=== PATIENT | female | born 1960 | race African-American/Black ===

== ENCOUNTER 2021-02-15 02:46 | Emergency (ER) | payer MEDICAID ==
[~2021-02-15] VITALS: Ht 160 cm; Wt 82.0 kg
[2021-02-15] MEDS ORDERED: ONDANSETRON HCL 4MG/2ML INJ IV STA (03:09)
[2021-02-15] MEDS ORDERED: MORPHINE SULFATE 4 MG/ML CPJ (NOT FOR IM USE) IV STA (03:09)
[2021-02-15] MEDS ORDERED: SODIUM CHLORIDE 0.9% 1,000 ML IV ONE (03:15)
[2021-02-15 03:32] LABS: BASOPHILS % 0.7 % (0.0-2.0); EOSINOPHILS % 0.7 % (0.0-5.0); HEMATOCRIT. 46.1 % (36.0-48.0); MEAN CORPUSCULAR HEMOGLOBIN 35.2 pg (28.0-32.0); MEAN CORPUSCULAR VOLUME 101.3 fL (81.0-99.0); MEAN PLATELET VOLUME 6.7 fl (7.4-10.4); MONOCYTES % 4.4 % (2.0-8.0); NEUTROPHILS % 74.2 % (40.0-76.0); PLATELET 253 x1000/uL (130-400); RED BLOOD CELL COUNT 4.55 mill/uL (4.2-5.4); RED CELL DISTRIBUTION WIDTH 13.8 % (11.6-14.6)
[2021-02-15 03:36] LABS: CHLORIDE 109 mEq/L (98-107)
[2021-02-15 03:37] LABS: PROTHROMBIN TIME 10.5 sec (9.6-11.0)
[2021-02-15] MEDS ORDERED: MORPHINE SULFATE 2 MG/ML CPJ (NOT FOR IM USE) IV ONE (05:30)
[2021-02-15 05:56] VITALS: BP 155/111
[2021-02-15 06:14] LABS: CLARITY URINE CLEAR (CLEAR); COLOR URINE DARK YELLOW (YELLOW); KETONES URINE NEGATIVE (NEGATIVE); LEUKOCYTE ESTERASE URINE TRACE (NEGATIVE); NITRITE URINE NEGATIVE (NEGATIVE); OCCULT BLOOD URINE NEGATIVE (NEGATIVE); PH URINE 5.5 (4.5-8.0); PROTEIN URINE TRACE (NEGATIVE); SPECIFIC GRAVITY URINE 1.028 (1.005-1.030)
[2021-02-15] MEDS ORDERED: TOPUD PO (06:52)
[2021-02-15] MEDS ORDERED: POLY17PO3 PO (06:52)
== END 2021-02-15 07:19 | disposition home or self-care (01) ==
LOC: ER 02:46
DX: R10.84 Generalized abdominal pain (principal); K64.4 Residual hemorrhoidal skin tags; K57.30 Diverticulosis of large intestine without perforation or abscess without bleeding; N28.1 Cyst of kidney, acquired; K92.1 Melena; J43.9 Emphysema, unspecified; M48.07 Spinal stenosis, lumbosacral region; M51.87 Other intervertebral disc disorders, lumbosacral region; K59.00 Constipation, unspecified; I10 Essential (primary) hypertension; I87.8 Other specified disorders of veins
CPT/HCPCS: 36415; 71045; 74176; 80053; 81003; 83690; 85025; 85610; 93005; 96361; 96374; 96375; 96376; 99285; J2270; J2405; J7030

== ENCOUNTER 2023-04-28 04:42 | Inpatient (IN) | payer MEDICAID ==
[~2023-04-28] VITALS: Ht 160 cm; Wt 82.6 kg
[~2023-04-28 04:42] MED LIST: POLY17PO3 PO; TOPUD PO
[2023-04-28] MEDS ORDERED: ACETAMINOPHEN 325MG TABLET PO STA (05:50)
[2023-04-28] MEDS ORDERED: SODIUM CHLORIDE 0.9% 1,000 ML IV ONE (06:00)
[2023-04-28 06:17] LABS: BASOPHILS % 0.4 % (0.0-2.0); DIFFERENTIAL COMMENT 0; EOSINOPHILS % 0.4 % (0.0-5.0); HEMATOCRIT. 49.9 % (36.0-48.0); HEMOGLOBIN. 17.1 g/dL (12.0-16.0); LYMPHOCYTES % 9.1 % (20.0-50.0); MEAN CORPUSCULAR HGB CONC 34.2 g/dL (31.0-37.0); MEAN CORPUSCULAR VOLUME 102.2 fL (81.0-99.0); MEAN PLATELET VOLUME 7.1 fl (7.4-10.4); MONOCYTES % 7.4 % (2.0-8.0); NEUTROPHILS % 82.7 % (40.0-76.0); PLATELET 230 x1000/uL (130-400); RED BLOOD CELL COUNT 4.88 mill/uL (4.2-5.4); RED CELL DISTRIBUTION WIDTH 14.6 % (11.6-14.6)
[2023-04-28 06:27] LABS: INR 1.1; PROTHROMBIN TIME 11.4 sec (9.6-11.0)
[2023-04-28 06:42] LABS: ALANINE AMINOTRANSFERASE 34 IU/L (10-49); ALBUMIN 4.5 g/dL (3.2-4.8); ASPARTATE AMINOTRANSFERASE 66 IU/L (<34); BILIRUBIN TOTAL 0.4 mg/dL (0.1-1.0); CALCIUM 9.4 mg/dL (8.7-10.4); CARBON DIOXIDE 21 mEq/L (21-32); CHLORIDE 107 mEq/L (98-107); CREATININE 1.6 mg/dL (0.6-1.0); GLUCOSE 102 mg/dL (70-105); POTASSIUM 3.8 mEq/L (3.5-5.1); PROTEIN TOTAL 7.5 g/dL (6.0-8.3); SODIUM 137 mEq/L (136-145); TROPONIN I HIGH SENSITIVITY 10 ng/L (3.0-34); UREA NITROGEN BLOOD 11 mg/dL (9-23)
[2023-04-28 07:00] LABS: LACTIC ACID 2.1 mmol/L (0.4-2.0)
[2023-04-28] MEDS ORDERED: LEVOFLOXACIN 750MG PREMIX 150 ML IV ONE (08:00)
[2023-04-28 08:10] LABS: TROPONIN I HIGH SENSITIVITY 19 ng/L (3.0-34)
[2023-04-28] MEDS ORDERED: ACETAMINOPHEN 325MG TABLET PO PRN ×2 (13:00)
[2023-04-28] MEDS ORDERED: GUAIFENESIN 200MG/10ML SUGAR FREE UDC PO PRN (13:00)
[2023-04-28] MEDS ORDERED: AMLODIPINE 5MG TABLET PO NR (13:00)
[2023-04-28] MEDS ORDERED: IPRATROPIUM/ALBUTEROL 0.5-3(2.5)MG/3ML NEB HHN PRN (13:00)
[2023-04-28] MEDS ORDERED: LOPERAMIDE HCL 2MG CAPSULE PO NR (13:00)
[2023-04-28] MEDS ORDERED: ONDANSETRON HCL 4MG/2ML INJ IV PRN (13:00)
[2023-04-28] MEDS ORDERED: CLONIDINE 0.1MG TABLET PO PRN (13:00)
[2023-04-28] MEDS: SODIUM CHLORIDE 0.9% 1,000 ML IV SCH ×2 (13:00→23:00)
[2023-04-28] MEDS: PANTOPRAZOLE 40MG DR TABLET PO SCH (14:00)
[2023-04-28] MEDS ORDERED: ROSU40TA PO (15:24)
[2023-04-28] MEDS ORDERED: DIPH25TA23 PO (15:24)
[2023-04-28] MEDS ORDERED: HYDR-4009 PO (15:24)
[2023-04-28] MEDS ORDERED: BENA-8 PO (15:24)
[2023-04-28] MEDS ORDERED: EMTR1TAB12 PO (15:24)
[2023-04-28] MEDS ORDERED: AMLO10TA80 PO (15:24)
[2023-04-28] MEDS ORDERED: CALC-476 PO (15:24)
[2023-04-28] MEDS ORDERED: NEVI400T5 PO (15:24)
[2023-04-28] MEDS ORDERED: IBUP-2030 PO (15:24)
[2023-04-28] MEDS ORDERED: ASPI-1406 PO (15:24)
[2023-04-28] MEDS ORDERED: ATEN50TA PO (15:24)
[2023-04-28] MEDS ORDERED: PIPERACILLIN/TAZ 3.375G PREMIX 50 ML IV NR (18:00)
[2023-04-28 19:42] LABS: CHOLESTEROL 182 mg/dL (<200); HDL CHOLESTEROL 80 mg/dL (>65); LDL CHOLESTEROL 111 mg/dL (5-100); PHOSPHORUS 2.2 mg/dL (2.5-4.9); T4 FREE 0.71 ng/dL (0.89-1.76); TRIGLYCERIDE 99 mg/dL (0-150)
[2023-04-28 20:27] LABS: HEMATOCRIT 47.5 % (36.0-48.0)
[2023-04-28 20:46] LABS: CREATINE KINASE 21628 IU/L (34-145)
[2023-04-28 22:30] VITALS: BP 121/76; PULSE 92; RESP 18; TEMP 101.7
[2023-04-28 23:00] VITALS: BP 121/76; PULSE 92; RESP 18; TEMP 101.7
[2023-04-28] MEDS ORDERED: POTASSIUM PHOS,M-BASIC-D-BASIC 15 MMOL in DEXT 5% WATER 245 ML IV NR (23:30)
[2023-04-29] MEDS ORDERED: PIPERACILLIN/TAZOBACTAM 3.375 G in DEXTROSE 5% WATER 50 ML IV SCH (06:00)
[2023-04-29] MEDS: PANTOPRAZOLE 40MG DR TABLET PO SCH (06:09)
[2023-04-29] MEDS: PIPERACILLIN/TAZOBACTAM 3.375 G in DEXTROSE 5% WATER 50 ML IV SCH ×3 (06:11→16:20)
[2023-04-29 06:37] LABS: BASOPHILS % 0.5 % (0.0-2.0); DIFFERENTIAL COMMENT 0; EOSINOPHILS % 0.4 % (0.0-5.0); HEMATOCRIT. 44.8 % (36.0-48.0); HEMOGLOBIN. 15.6 g/dL (12.0-16.0); LYMPHOCYTES % 24.6 % (20.0-50.0); MEAN CORPUSCULAR HGB CONC 34.9 g/dL (31.0-37.0); MEAN CORPUSCULAR VOLUME 100.4 fL (81.0-99.0); MEAN PLATELET VOLUME 7.5 fl (7.4-10.4); MONOCYTES % 8.6 % (2.0-8.0); NEUTROPHILS % 65.9 % (40.0-76.0); PLATELET 184 x1000/uL (130-400); RED BLOOD CELL COUNT 4.47 mill/uL (4.2-5.4); RED CELL DISTRIBUTION WIDTH 14.6 % (11.6-14.6); WHITE BLOOD COUNT 9.2 x1000/uL (4.5-11.0)
[2023-04-29] MEDS: ASPIRIN 81MG EC TABLET PO SCH (09:00)
[2023-04-29] MEDS: AMLODIPINE 10MG TABLET PO SCH (09:00)
[2023-04-29] MEDS: LOPERAMIDE HCL 2MG CAPSULE PO NR ×2 (09:21→09:30)
[2023-04-29 10:06] LABS: ALANINE AMINOTRANSFERASE 179 IU/L (10-49); ALBUMIN 3.7 g/dL (3.2-4.8); ASPARTATE AMINOTRANSFERASE 737 IU/L (<34); BILIRUBIN TOTAL 0.3 mg/dL (0.1-1.0); CALCIUM 8.8 mg/dL (8.7-10.4); CARBON DIOXIDE 22 mEq/L (21-32); CHLORIDE 110 mEq/L (98-107); CREATININE 1.2 mg/dL (0.6-1.0); GLUCOSE 86 mg/dL (70-105); POTASSIUM 4.5 mEq/L (3.5-5.1); PROTEIN TOTAL 6.1 g/dL (6.0-8.3); SODIUM 139 mEq/L (136-145); UREA NITROGEN BLOOD 9 mg/dL (9-23)
[2023-04-29 10:38] VITALS: BP 100/59; PULSE 79; RESP 18; TEMP 98
[2023-04-29 10:48] LABS: CREATINE KINASE 25730 IU/L (34-145)
[2023-04-29 11:38] LABS: CLARITY URINE CLOUDY (CLEAR); COLOR URINE YELLOW (YELLOW); GLUCOSE URINE NEGATIVE (NEGATIVE); KETONES URINE NEGATIVE (NEGATIVE); LEUKOCYTE ESTERASE URINE NEGATIVE (NEGATIVE); NITRITE URINE NEGATIVE (NEGATIVE); OCCULT BLOOD URINE 3+ (NEGATIVE); PH URINE 5.5 (4.5-8.0); PROTEIN URINE TRACE (NEGATIVE); SPECIFIC GRAVITY URINE 1.017 (1.005-1.030); UROBILINOGEN URINE 0.2 E.U./dL (0.2-1.0)
[2023-04-29 12:11] LABS: BACTERIA URINE 1+; COARSE GRANULAR CASTS URINE 0-5 /lpf; RBC URINE 0-2 /hpf (0-2); SQUAMOUS EPITHELIAL CELL URINE 1+ /lpf (RARE/1+); YEAST URINE NONE SEEN
[2023-04-29 14:41] VITALS: BP 123/60; PULSE 81; RESP 18; TEMP 98
[2023-04-29] MEDS ORDERED: DIATR MEGLU/DIATRIZOATE SOLN 30ML PO SCH (14:45)
[2023-04-29 16:17] LABS: IRON 23 ug/dL (50-170); TOTAL IRON BINDING CAPACITY 327 ug/dl (250-425)
[2023-04-29 17:33] VITALS: BP 116/67; PULSE 83; RESP 18; TEMP 98
[2023-04-29] MEDS ORDERED: CEFTRIAXONE 2GM/50ML (ADDEASE) 50 ML IV SCH (19:30)
[2023-04-29 20:00] VITALS: BP 99/72; PULSE 88; RESP 18; TEMP 98.8
[2023-04-29] MEDS: CEFTRIAXONE 2 G in DEXTROSE 5% WATER 50 ML IV SCH (21:14)
[2023-04-29] MEDS: METRONIDAZOLE 500 MG PREMIX 100 ML IV SCH (22:00)
[2023-04-29 22:08] LABS: FERRITIN 90 ng/mL (10-291); FOLIC ACID (FOLATE) SERUM 12.28 ng/mL (>5.38)
[2023-04-29 22:28] LABS: VITAMIN B12 SERUM > 20000 pg/mL (211-911)
[2023-04-30] VITALS: BP 125/75; PULSE 90; RESP 18; TEMP 97.7
[2023-04-30] MEDS: METRONIDAZOLE 500 MG PREMIX 100 ML IV SCH ×2 (06:00→14:00)
[2023-04-30 06:29] LABS: BASOPHILS % 0.4 % (0.0-2.0); EOSINOPHILS % 1.3 % (0.0-5.0); HEMATOCRIT. 41.8 % (36.0-48.0); HEMOGLOBIN. 14.5 g/dL (12.0-16.0); MEAN CORPUSCULAR HEMOGLOBIN 34.6 pg (28.0-32.0); MEAN CORPUSCULAR HGB CONC 34.8 g/dL (31.0-37.0); MEAN CORPUSCULAR VOLUME 99.4 fL (81.0-99.0); MEAN PLATELET VOLUME 7.2 fl (7.4-10.4); NEUTROPHILS % 67.3 % (40.0-76.0); PLATELET 176 x1000/uL (130-400); RED BLOOD CELL COUNT 4.21 mill/uL (4.2-5.4); RED CELL DISTRIBUTION WIDTH 14.4 % (11.6-14.6); WHITE BLOOD COUNT 9.8 x1000/uL (4.5-11.0)
[2023-04-30 06:54] LABS: ALANINE AMINOTRANSFERASE 187 IU/L (10-49); ALBUMIN 3.8 g/dL (3.2-4.8); ASPARTATE AMINOTRANSFERASE 628 IU/L (<34); BILIRUBIN DIRECT 0.1 mg/dL (<=3.0); BILIRUBIN TOTAL 0.4 mg/dL (0.1-1.0); CALCIUM 8.6 mg/dL (8.7-10.4); CARBON DIOXIDE 21 mEq/L (21-32); CHLORIDE 111 mEq/L (98-107); GLUCOSE 91 mg/dL (70-105); POTASSIUM 4.1 mEq/L (3.5-5.1); PROTEIN TOTAL 5.9 g/dL (6.0-8.3); SODIUM 139 mEq/L (136-145); UREA NITROGEN BLOOD 6 mg/dL (9-23)
[2023-04-30 06:58] LABS: CREATINE KINASE 16918 IU/L (34-145)
[2023-04-30] MEDS: SODIUM CHLORIDE 0.9% 1,000 ML IV SCH (07:55)
[2023-04-30 08:00] VITALS: BP 134/76; RESP 20; TEMP 97.1
[2023-04-30] MEDS: FAMOTIDINE 20MG TABLET PO SCH (08:15)
[2023-04-30] MEDS ORDERED: NEVIRAPINE 200 MG PO SCH ×2 (09:00→09:30)
[2023-04-30] MEDS ORDERED: DESCOVY PO SCH (09:00)
[2023-04-30] MEDS: ASPIRIN 81MG EC TABLET PO SCH (09:00)
[2023-04-30] MEDS: AMLODIPINE 10MG TABLET PO SCH (09:48)
[2023-04-30 12:00] VITALS: BP 104/49; PULSE 82; RESP 19; TEMP 97.1
[2023-04-30 16:00] VITALS: BP 118/61; PULSE 80; RESP 20; TEMP 97.7
[2023-04-30] MEDS ORDERED: BISMUTH SUBSALICYLATE 262 MG/15 ML-120ML BOTTLE PO NR (16:15)
[2023-04-30 20:00] VITALS: BP 110/66; PULSE 77; RESP 18; TEMP 98
[2023-04-30] MEDS: CEFTRIAXONE 2 G in DEXTROSE 5% WATER 50 ML IV SCH (20:30)
[2023-05-01] VITALS: BP 116/64; PULSE 77; RESP 18; TEMP 98.5
[2023-05-01] MEDS: SODIUM CHLORIDE 0.9% 1,000 ML IV SCH ×3 (01:00→20:38)
[2023-05-01 04:00] VITALS: BP 114/68; PULSE 80; RESP 18; TEMP 97.7
[2023-05-01 06:09] LABS: BASOPHILS % 0.3 % (0.0-2.0); DIFFERENTIAL COMMENT 0; EOSINOPHILS % 1.3 % (0.0-5.0); HEMATOCRIT. 39.5 % (36.0-48.0); HEMOGLOBIN. 13.5 g/dL (12.0-16.0); LYMPHOCYTES % 29.3 % (20.0-50.0); MEAN CORPUSCULAR HEMOGLOBIN 34.8 pg (28.0-32.0); MEAN CORPUSCULAR HGB CONC 34.3 g/dL (31.0-37.0); MEAN CORPUSCULAR VOLUME 101.6 fL (81.0-99.0); MEAN PLATELET VOLUME 7.2 fl (7.4-10.4); MONOCYTES % 5.1 % (2.0-8.0); PLATELET 192 x1000/uL (130-400); RED BLOOD CELL COUNT 3.89 mill/uL (4.2-5.4); RED CELL DISTRIBUTION WIDTH 14.1 % (11.6-14.6); WHITE BLOOD COUNT 8.3 x1000/uL (4.5-11.0)
[2023-05-01 06:19] LABS: CALCIUM 8.5 mg/dL (8.7-10.4); CARBON DIOXIDE 22 mEq/L (21-32); CHLORIDE 112 mEq/L (98-107); CREATININE 0.8 mg/dL (0.6-1.0); GLUCOSE 85 mg/dL (70-105); POTASSIUM 3.8 mEq/L (3.5-5.1); SODIUM 142 mEq/L (136-145)
[2023-05-01 06:25] LABS: UREA NITROGEN BLOOD < 5 mg/dL (9-23)
[2023-05-01] MEDS: FAMOTIDINE 20MG TABLET PO SCH (06:57)
[2023-05-01] MEDS ORDERED: BISMUTH SUBSALICYLATE 262 MG/15 ML-120ML BOTTLE PO PRN (07:30)
[2023-05-01 08:00] VITALS: BP 115/63; PULSE 72; RESP 17; TEMP 97.1
[2023-05-01] MEDS: AMLODIPINE 10MG TABLET PO SCH (08:50)
[2023-05-01] MEDS: ASPIRIN 81MG EC TABLET PO SCH (08:51)
[2023-05-01 09:48] LABS: ALANINE AMINOTRANSFERASE 178 IU/L (10-49); ALBUMIN 3.6 g/dL (3.2-4.8); ASPARTATE AMINOTRANSFERASE 507 IU/L (<34); BILIRUBIN DIRECT 0.1 mg/dL (<=3.0); BILIRUBIN TOTAL 0.4 mg/dL (0.1-1.0); PROTEIN TOTAL 5.6 g/dL (6.0-8.3)
[2023-05-01 09:59] LABS: CREATINE KINASE 11780 IU/L (34-145)
[2023-05-01 12:00] VITALS: BP 120/60; PULSE 70; RESP 16; TEMP 97.3
[2023-05-01 16:00] VITALS: BP 115/68; PULSE 60; RESP 16; TEMP 97.3
[2023-05-01] MEDS: CEFTRIAXONE 2 G in DEXTROSE 5% WATER 50 ML IV SCH (20:37)
[2023-05-01] MEDS: METRONIDAZOLE 500 MG PREMIX 100 ML IV SCH (22:26)
[2023-05-02] VITALS: PULSE 80; RESP 17; TEMP 98.1
[2023-05-02] MEDS: SODIUM CHLORIDE 0.9% 1,000 ML IV SCH (03:05)
[2023-05-02 04:00] VITALS: BP 114/60; PULSE 76; RESP 17; TEMP 97.5
[2023-05-02] MEDS: METRONIDAZOLE 500 MG PREMIX 100 ML IV SCH ×2 (05:47→13:24)
[2023-05-02 08:00] VITALS: BP 110/66; PULSE 72; RESP 17; TEMP 98.2
[2023-05-02] MEDS: ASPIRIN 81MG EC TABLET PO SCH (08:33)
[2023-05-02] MEDS: FAMOTIDINE 20MG TABLET PO SCH (08:33)
[2023-05-02] MEDS: AMLODIPINE 10MG TABLET PO SCH (08:33)
[2023-05-02 08:42] LABS: ALANINE AMINOTRANSFERASE 161 IU/L (10-49); ALBUMIN 3.7 g/dL (3.2-4.8); ASPARTATE AMINOTRANSFERASE 344 IU/L (<34); BILIRUBIN TOTAL 0.4 mg/dL (0.1-1.0); CALCIUM 8.8 mg/dL (8.7-10.4); CARBON DIOXIDE 23 mEq/L (21-32); CHLORIDE 112 mEq/L (98-107); CREATINE KINASE 6267 IU/L (34-145); CREATININE 0.7 mg/dL (0.6-1.0); GLUCOSE 91 mg/dL (70-105); PROTEIN TOTAL 5.7 g/dL (6.0-8.3); SODIUM 144 mEq/L (136-145)
[2023-05-02 08:46] LABS: UREA NITROGEN BLOOD < 5 mg/dL (9-23)
[2023-05-02 09:09] LABS: BASOPHILS % 0.3 % (0.0-2.0); DIFFERENTIAL COMMENT 0; EOSINOPHILS % 2.9 % (0.0-5.0); HEMOGLOBIN. 13.2 g/dL (12.0-16.0); LYMPHOCYTES % 29.3 % (20.0-50.0); MEAN CORPUSCULAR HEMOGLOBIN 34.4 pg (28.0-32.0); MEAN CORPUSCULAR HGB CONC 33.9 g/dL (31.0-37.0); MEAN CORPUSCULAR VOLUME 101.4 fL (81.0-99.0); MEAN PLATELET VOLUME 7.8 fl (7.4-10.4); MONOCYTES % 5.4 % (2.0-8.0); NEUTROPHILS % 62.1 % (40.0-76.0); PLATELET 228 x1000/uL (130-400); RED BLOOD CELL COUNT 3.85 mill/uL (4.2-5.4); RED CELL DISTRIBUTION WIDTH 14.1 % (11.6-14.6); WHITE BLOOD COUNT 7.5 x1000/uL (4.5-11.0)
[2023-05-02 09:11] LABS: ABSOLUTE EOSINOPHILS 0.1 x10E3/uL (0.0-0.4); ABSOLUTE LYMPHOCYTES 2.6 x10E3/uL (0.7-3.1); ABSOLUTE MONOCYTES 0.5 x10E3/uL (0.1-0.9); ABSOLUTE NEUTROPHILS 7.3 x10E3/uL (1.4-7.0); BASOPHILS 0 % (Not Estab.); EOSINOPHILS 1 % (Not Estab.); HEMATOCRIT 39.7 % (34.0-46.6); HEMOGLOBIN 13.6 g/dL (11.1-15.9); IMMATURE GRANULOCYTES 0 % (Not Estab.); LYMPHOCYTES 25 % (Not Estab.); MEAN CORPUSCULAR HEMOGLOBIN 34.5 pg (26.6-33.0); MEAN CORPUSCULAR HGB CONC. 34.3 g/dL (31.5-35.7); MEAN CORPUSCULAR VOLUME 101 fL (79-97); MONOCYTES 5 % (Not Estab.); NEUTROPHILS 69 % (Not Estab.); PLATELETS 184 x10E3/uL (150-450); RBC 3.94 x10E6/uL (3.77-5.28); RED CELL DISTRIBUTION WIDTH 13.6 % (11.7-15.4); WBC 10.6 x10E3/uL (3.4-10.8)
[2023-05-02 13:07] LABS: % CD 3 POS. LYMPHOCYTES 82.7 % (57.5-86.2); % CD 4 POS. LYMPHOCYTES 42.9 % (30.8-58.5); ABSOLUTE CD 3 2150 /uL (622-2402); ABSOLUTE CD 4 HELPER 1115 /uL (359-1519); ABSOLUTE CD 8 SUPPRESSOR 1066 /uL (109-897); CD4/CD8 RATIO 1.05 (0.92-3.72)
[2023-05-02 15:36] VITALS: BP 110/66; PULSE 79; TEMP 97.8; O2SAT 99
[2023-05-02] MEDS ORDERED: METR-167 MT (15:43)
[2023-05-02] MEDS ORDERED: LEVO750T68 MT (15:43)
[2023-05-02] MEDS ORDERED: METRONIDAZOLE 500MG TABLET PO SCH (22:00)
[2023-05-03 13:06] LABS: ATYPICAL P-ANCA <1:20 titer (Neg:<1:20); ATYPICAL pANCA <1:20 titer (Neg:<1:20); CYTOPLASMIC C-ANCA <1:20 titer (Neg:<1:20); PERINUCLEAR P-ANCA <1:20 titer (Neg:<1:20); SACCHAROMYCES CEREVISIAE IGG <20.0 Units (0.0-24.9); SACCHAROMYCES CEREVISIAE IGM <20.0 Units (0.0-24.9)
[2023-05-03 19:06] LABS: ANTI-MYELOPEROXIDASE AB < 0.2 units (0.0-0.9); ANTI-PROTEINASE 3 ABS < 0.2 units (0.0-0.9)
== END 2023-05-02 16:40 | disposition home or self-care (01) | DRG 892 ==
LOC: ER 04:42 → 6WST 10:40 → EDBEDREQ 11:03 → SUPCPDRO 14:24
PROVIDERS: ADMIT Internal Medicine; ATTEND Internal Medicine
DX: A41.9 Sepsis, unspecified organism (principal); B20 Human immunodeficiency virus [HIV] disease; N17.0 Acute kidney failure with tubular necrosis; R65.20 Severe sepsis without septic shock; M62.82 Rhabdomyolysis; K92.2 Gastrointestinal hemorrhage, unspecified; E86.0 Dehydration; I25.10 Atherosclerotic heart disease of native coronary artery without angina pectoris; I25.2 Old myocardial infarction; R74.01 Elevation of levels of liver transaminase levels; A09 Infectious gastroenteritis and colitis, unspecified; I12.9 Hypertensive chronic kidney disease with stage 1 through stage 4 chronic kidney disease, or unspecified chronic kidney disease; Z98.61 Coronary angioplasty status; Z79.82 Long term (current) use of aspirin; Z90.711 Acquired absence of uterus with remaining cervical stump; Z20.822 Contact with and (suspected) exposure to COVID-19
CPT/HCPCS: 36415; 71045; 74176; 80048; 80053; 80061; 80076; 81003; 82270; 82550; 82607; 82728; 82746; 83520; 83540; 83550; 83605; 83735; 84100; 84145; 84439; 84484; 85014; 85018; 85025; 85044; 85651; 86256; 86359; 86360; 86671; 86850; 86900; 87015; 87045; 87177; 87209; 87426; 87427; 87449; 87493; 87804; 89055; 93005; 97162; 99285; C1893; C9803; J0696; J1956; J2405; J2543; J3490; J7030; J7060; Q9963

== ENCOUNTER 2024-01-22 16:40 | Emergency (ER) | payer MEDICAID ==
[~2024-01-22] VITALS: Ht 167.6 cm; Wt 91.0 kg
[~2024-01-22 16:40] MED LIST changes: +AMLO10TA80 PO; +ASPI-1406 PO; +ATEN50TA PO; +BENA-8 PO; +CALC-476 PO; +DIPH25TA23 PO; +EMTR1TAB12 PO; +HYDR-4009 PO; +IBUP-2030 PO; +LEVO750T68 MT; +METR-167 MT; +NEVI400T5 PO; -POLY17PO3 PO; +ROSU40TA PO; -TOPUD PO
[2024-01-22 16:44] VITALS: TEMP 98.5; O2SAT 99
[2024-01-22 17:32] LABS: CHLORIDE 109 mEq/L (98-107); POTASSIUM 4.2 mEq/L (3.5-5.1); SODIUM 138 mEq/L (136-145)
[2024-01-22 17:33] LABS: BASOPHILS % 0.1 % (0.0-2.0); CALCIUM 9.8 mg/dL (8.7-10.4); CARBON DIOXIDE 22 mEq/L (21-32); DIFFERENTIAL COMMENT 0; EOSINOPHILS % 0.1 % (0.0-5.0); HEMATOCRIT. 45.1 % (36.0-48.0); HEMOGLOBIN. 15.3 g/dL (12.0-16.0); LYMPHOCYTES % 22.4 % (20.0-50.0); MEAN CORPUSCULAR HEMOGLOBIN 34.9 pg (28.0-32.0); MEAN CORPUSCULAR HGB CONC 33.9 g/dL (31.0-37.0); MEAN CORPUSCULAR VOLUME 102.9 fL (81.0-99.0); MEAN PLATELET VOLUME 6.6 fl (7.4-10.4); NEUTROPHILS % 72.4 % (40.0-76.0); PLATELET 268 x1000/uL (130-400); RED BLOOD CELL COUNT 4.38 mill/uL (4.2-5.4); RED CELL DISTRIBUTION WIDTH 13.3 % (11.6-14.6); WHITE BLOOD COUNT 8.1 x1000/uL (4.5-11.0)
[2024-01-22 17:38] LABS: GLUCOSE 98 mg/dL (70-105); UREA NITROGEN BLOOD 22 mg/dL (9-23)
[2024-01-22 17:40] LABS: TROPONIN I HIGH SENSITIVITY < 4 ng/L (3.0-34)
[2024-01-22 18:27] LABS: ALANINE AMINOTRANSFERASE 34 IU/L (10-49); ALBUMIN 4.2 g/dL (3.2-4.8); ASPARTATE AMINOTRANSFERASE 22 IU/L (<34); BILIRUBIN DIRECT 0.1 mg/dL (<=3.0); BILIRUBIN TOTAL 0.4 mg/dL (0.1-1.0); PROTEIN TOTAL 6.3 g/dL (6.0-8.3)
[2024-01-22] MEDS: MAGNESIUM/ALUMINUM HYDROXIDE/SIMETHICONE 30ML UDC PO STA ×2 (19:29→20:06)
[2024-01-22] MEDS: ONDANSETRON HCL 4MG/2ML INJ IV STA (19:29)
[2024-01-22] MEDS: SODIUM CHLORIDE 0.9% 1,000 ML IV ONE (19:29)
[2024-01-22] MEDS: FAMOTIDINE 20MG/2ML VIAL IV STA (19:29)
[2024-01-22] MEDS ORDERED: MAG355OR21 MT (20:24)
[2024-01-22] MEDS ORDERED: FAMO-135 MT (20:24)
[2024-01-22 20:30] VITALS: BP 129/79; PULSE 75; RESP 17; O2SAT 96
== END 2024-01-22 20:30 | disposition home or self-care (01) ==
LOC: ER 16:40
DX: R07.89 Other chest pain (principal); K21.9 Gastro-esophageal reflux disease without esophagitis; I25.2 Old myocardial infarction; Z79.899 Other long term (current) drug therapy
CPT/HCPCS: 80076; 80048; 85025; 84484; 36415; 71045; 93005; 96361; 96374; 96375; 99285; J3490; J2405; J7030; Z7610 ×2